=== PATIENT | male | born 1975 | race Caucasian/White ===

== ENCOUNTER 2021-02-07 16:27 | Emergency (ER) | payer SELFPAY ==
[2021-02-07] MEDS ORDERED: Ondansetron PF 4 MG/2 ML Vial ONE (17:39)
[2021-02-07 18:57] LABS: Albumin 3.9 g/dL (3.5-5.0)
[2021-02-07 18:59] LABS: Calcium 9.5 mg/dL (7.8-10.44); Chloride 106 mmol/L (98-107); Potassium 5.2 mmol/L (3.5-5.1); Sodium 139 mmol/L (136-145)
[2021-02-07 19:00] LABS: Globulin 2.8 g/dL (2.4-3.5); Glucose 128 mg/dL (70-105); Protein, Total 6.7 g/dL (6.0-8.3)
[2021-02-07 19:02] LABS: Anion Gap 14 mmol/L (10-20); Bilirubin, Total 0.4 mg/dL (0.2-1.2); Carbon Dioxide 24 mmol/L (22-29)
[2021-02-07 19:03] LABS: Alkaline Phosphatase 137 U/L (40-110); Calc. Creatinine Clearance 0 mL/min (70-130)
[2021-02-07 19:04] LABS: BUN (Urea Nitrogen) 15 mg/dL (8.9-20.6)
[2021-02-07 19:05] LABS: AST (SGOT) 40 U/L (5-34)
[2021-02-07 19:06] LABS: ALT (SGPT) 38 U/L (8-55); CK (CPK) 88 U/L (30-200); Lipase 431 U/L (8-78)
[2021-02-07] MEDS ORDERED: Dicyclomine 20 MG TAB ONE (19:35)
[2021-02-07 20:21] LABS: #Eosinphils 0.3 thou/uL (0.0-0.7); #Lymphocytes 0.9 thou/uL (1.20-3.40); #Monocytes 0.9 thou/uL (0.11-0.59); #Neutrophils 12.4 thou/uL (1.40-6.50); %Basophils 0.2 % (0.0-1.0); %Eosinophils 2.1 % (0.0-10.0); %Lymphocytes 6.1 % (21.0-51.0); %Monocytes 6.1 % (0.0-10.0); %Neutrophils 85.5 % (42.0-75.0); Hemoglobin 13.9 g/dL (14.0-18.0); Mean Corpuscular HGB CONC 34.3 g/dL (32.0-36.0); Mean Corpuscular Hemoglobin 33.2 pg (27.0-31.0); Mean Corpuscular Volume 96.8 fL (78.0-98.0); Mean Platelet Volume 8.3 fL (7.4-10.4); Platelet Count 182 thou/uL (130-400); RBC Distribution Width 12.2 % (11.5-14.5); Red Blood Cell (RBC) Count 4.19 mill/uL (4.70-6.10); White Blood Cell (WBC) Count 14.5 thou/uL (4.8-10.8)
== END 2021-02-07 21:03 | disposition home or self-care (01) ==
LOC: ERS 16:27
DX: K85.90 Acute pancreatitis without necrosis or infection, unspecified (principal); K52.9 Noninfective gastroenteritis and colitis, unspecified; Z79.899 Other long term (current) drug therapy; Z79.84 Long term (current) use of oral hypoglycemic drugs; I10 Essential (primary) hypertension; E11.9 Type 2 diabetes mellitus without complications
CPT/HCPCS: 36415; 80053; 82550; 83690; 85025; 96374; J2405

== ENCOUNTER 2021-11-23 16:34 | Emergency (ER) | payer BC ==
[~2021-11-23 16:34] MED LIST: Iopamidol-370 76% 500 ML 1 ML ONE
[2021-11-23 17:37] LABS: Bilirubin Negative (Negative); Blood, Urine Negative (Negative); Clarity Clear (Clear); Glucose, Urine (Dipstick) >=1000 mg/dL (Negative); Ketone, Urine Negative (Negative); Leukocyte Negative Leu/uL (Negative); Nitrite Negative (Negative); Protein, Urine (Dipstick) Negative (Neg-Trace); Specific Gravity, Urine 1.002 (1.002-1.036); Urobilinogen Normal mg/dL (Less than 2)
[2021-11-23 18:05] LABS: #Eosinphils 0.1 thou/uL (0.0-0.7); #Lymphocytes 2.6 thou/uL (1.20-3.40); #Monocytes 0.4 thou/uL (0.11-0.59); %Basophils 0.7 % (0.0-1.0); %Eosinophils 2.1 % (0.0-10.0); %Lymphocytes 42.2 % (21.0-51.0); %Neutrophils 48.9 % (42.0-75.0); Mean Corpuscular HGB CONC 32.5 g/dL (32.0-36.0); Mean Corpuscular Volume 98.4 fL (78.0-98.0); Mean Platelet Volume 8.3 fL (7.4-10.4); Platelet Count 175 thou/uL (130-400); RBC Distribution Width 12.1 % (11.5-14.5); Red Blood Cell (RBC) Count 4.38 mill/uL (4.70-6.10); White Blood Cell (WBC) Count 6.2 thou/uL (4.8-10.8)
[2021-11-23] MEDS ORDERED: Morphine 4 MG/ML VIAL ONE (18:59)
[2021-11-23] MEDS ORDERED: Ondansetron PF 4 MG/2 ML Vial ONE (18:59)
[2021-11-23 19:02] LABS: Albumin 4.2 g/dL (3.5-5.0)
[2021-11-23 19:03] LABS: Chloride 102 mmol/L (98-107); Potassium 4.2 mmol/L (3.5-5.1); Sodium 140 mmol/L (136-145)
[2021-11-23 19:04] LABS: Calcium 9.9 mg/dL (7.8-10.44)
[2021-11-23 19:05] LABS: Globulin 2.9 g/dL (2.4-3.5); Glucose 112 mg/dL (70-105); Protein, Total 7.1 g/dL (6.0-8.3)
[2021-11-23 19:06] LABS: Anion Gap 12 mmol/L (10-20); Carbon Dioxide 30 mmol/L (22-29)
[2021-11-23 19:07] LABS: Alkaline Phosphatase 86 U/L (40-110); Bilirubin, Total 0.7 mg/dL (0.2-1.2)
[2021-11-23 19:08] LABS: Calc. Creatinine Clearance 0 mL/min (70-130); Estimated GFR 93
[2021-11-23 19:09] LABS: BUN (Urea Nitrogen) 19 mg/dL (8.9-20.6)
[2021-11-23 19:10] LABS: AST (SGOT) 28 U/L (5-34)
[2021-11-23 19:11] LABS: ALT (SGPT) 25 U/L (8-55); Lipase 40 U/L (8-78)
== END 2021-11-23 20:48 | disposition home or self-care (01) ==
LOC: ERS 16:34
DX: K92.1 Melena (principal); I10 Essential (primary) hypertension; E11.9 Type 2 diabetes mellitus without complications
CPT/HCPCS: 74177; 80053; 81003; 82274; 83690; 85025; 96374; 96375; J2270; J2405; Q9967

== ENCOUNTER 2022-01-06 07:14 | Outpatient (CLI) | payer BC | END 2022-01-06 07:15 | disposition home or self-care (01) | LOC: NM 07:14 | PROVIDERS: ATTEND Physician Assistant Medical | DX: R11.2 Nausea with vomiting, unspecified (principal); R10.33 Periumbilical pain; K59.00 Constipation, unspecified | CPT/HCPCS: 78264; A9541 ==

== ENCOUNTER 2022-01-26 14:11 | Outpatient (CLI) | payer BC | END 2022-01-26 14:12 | disposition home or self-care (01) | LOC: BICRAD 14:11 | PROVIDERS: ATTEND Physician Assistant Medical | DX: K59.00 Constipation, unspecified (principal); R11.2 Nausea with vomiting, unspecified; R19.5 Other fecal abnormalities | CPT/HCPCS: 74018 ==

== ENCOUNTER 2022-02-03 09:27 | Outpatient (CLI) | payer BC | END 2022-02-03 09:28 | disposition home or self-care (01) | LOC: BICRAD 09:27 | PROVIDERS: ATTEND Physician Assistant Medical | DX: K59.01 Slow transit constipation (principal); K58.2 Mixed irritable bowel syndrome; R11.2 Nausea with vomiting, unspecified; R93.5 Abnormal findings on diagnostic imaging of other abdominal regions, including retroperitoneum | CPT/HCPCS: 74018 ==

== ENCOUNTER 2022-02-07 13:20 | Outpatient (CLI) | payer BC | END 2022-02-07 13:21 | disposition home or self-care (01) | LOC: BICRAD 13:20 | PROVIDERS: ATTEND Physician Assistant Medical | DX: K58.2 Mixed irritable bowel syndrome (principal); K59.01 Slow transit constipation; R11.2 Nausea with vomiting, unspecified | CPT/HCPCS: 74018 ==

== ENCOUNTER 2022-02-11 12:25 | Outpatient (CLI) | payer BC | END 2022-02-11 12:26 | disposition home or self-care (01) | LOC: BICRAD 12:25 | PROVIDERS: ATTEND Physician Assistant Medical | DX: K59.00 Constipation, unspecified (principal) | CPT/HCPCS: 74018 ==